=== PATIENT | male | born 1995 | race Hispanic/Latino ===

== ENCOUNTER 2023-03-17 13:13 | Emergency (ER) | payer OTHER ==
[~2023-03-17] VITALS: Ht 177.8 cm; Wt 104.3 kg
[2023-03-17 13:27] VITALS: BP 121/89; PULSE 74; RESP 16
[2023-03-17] MEDS ORDERED: KETOROLAC 60 MG VIAL (30MG/ML) IM ONE (14:00)
[2023-03-17] MEDS ORDERED: IBUP-2077 PO (14:43)
[2023-03-17] MEDS ORDERED: CYCL10TA16 PO (14:43)
[2023-03-17] MEDS ORDERED: METH4TAB3 PO (14:43)
[2023-03-17] MEDS ORDERED: OMEP40CA21 PO (14:43)
== END 2023-03-17 15:55 | disposition home or self-care (01) ==
LOC: EDH 13:13
DX: G89.29 Other chronic pain (principal); M47.816 Spondylosis without myelopathy or radiculopathy, lumbar region; Z79.899 Other long term (current) drug therapy
CPT/HCPCS: 99283; 72100; 96372; J1885

== ENCOUNTER 2025-01-02 02:44 | Emergency (ER) | payer OTHER ==
[~2025-01-02] VITALS: Ht 177.8 cm; Wt 108.9 kg
[~2025-01-02 02:44] MED LIST: CYCL10TA16 PO; IBUP-2077 PO; METH4TAB3 PO; OMEP40CA21 PO
[2025-01-02] MEDS ORDERED: CLIN-141 PO (03:22)
[2025-01-02] MEDS ORDERED: KETO10 PO (03:22)
--- NOTE | 2025-01-02 03:24 | ERN ---
General Chief Complaint: Tooth Ache/Pain Stated Complaint: TOOTHACHE Time Seen by MD: 02:57 Source: patient History of Present Illness Initial Comments 29-year-old male left inferior molar dental decay that has been bothering him for weeks. He has a temporary filling that he got in [place]. He comes in because of continuing dental pain and throbbing. He gives a history of popping what sounded like a fluid collection in his left cheek which helped relieve the pain and swelling for a few days with the pain is coming back. Allergies: Coded Allergies: No Known Drug Allergies (Unverified Allergy, Unknown, 03/17/23) Home Meds Active Scripts Omeprazole (Omeprazole) 40 Mg Capsule.dr, 40 MG PO DAILY, #30 CAP Prov:LISSETH PAZ [employer] 03/17/23 Methylprednisolone (Medrol) 4 Mg Tab.ds.pk, 4 MG PO AD, #1 UNIT Prov:LISSETH PAZ [employer] 03/17/23 Cyclobenzaprine HCl (Flexeril) 10 Mg Tab, 10 MG PO TID, #30 TAB Prov:LISSETH PAZ [employer] 03/17/23 Ibuprofen (Ibuprofen 800 mg Tab) 800 Mg Tab, 800 MG PO Q8H PRN for fever or pain, #30 TAB 0 Refills Prov:LISSETH PAZ [employer] 03/17/23 Past Medical History Past Medical History: No Pertinent History Past Surgical History: None ROS Dictation Review of systems is negative no fevers no chills no shortness of breath. Physical Exam Ear, Nose, Throat Comment Patient's left lower gumline both the cheek side in the tongue side show no signs of bleeding no signs of swelling no signs of erythema or infection. There is a what looks like a temporary paste covering the tooth. The size of the tooth defect is quite large. There is no swelling or warmth or tenderness in the inferior mandibular area of the patient's face. There was no swelling in the patient's cheek or gum lines. MDM Patient most likely needs a root canal. All we can offer here is pain control and antibiotics. I explained this to the patient and he understood. I also explained to him the data coming out over the last 3-5 years describing increased risks of heart disease and dementia associated with poor dentition and lack of flossing. I strongly recommended he go see a dentist. ED Course Vital Signs Date Time Temp Pulse Resp B/P (MAP) Pulse Ox O2 Delivery O2 Flow Rate FiO2 01/02/25 02:45 97.3 59 16 140/88 98 Room Air DX & DISP Disposition: Discharge Departure Impression: Primary Impression: Need for dental care Condition: Stable Scripts Ketorolac Tromethamine (Toradol) 10 Mg Tab 1 TAB PO Q6HPRN PRN for pain for 5 Days, #20 TAB 0 Refills Prov: SETH ZAMUDIO MD 01/02/25 Clindamycin HCl (Clindamycin HCl) 300 Mg Capsule 1 CAP PO QID for 10 Days, #40 CAP 0 Refills Prov: SETH ZAMUDIO MD 01/02/25 Additional Instructions: You have a dental cavity that looks like it has been partially covered by a dent ist. I would not be surprised that you need a full root canal on that tooth. I strongly recommend you find a dentist who can performed a service for your. I have given you Toradol for pain control and also clindamycin to decrease infection. If you take these two medicines together at the same time it can lead to significant stomach upset. Take them at different times during the day and take them both with food. Referrals: SELF,REFERRAL (PCP) SETH ZAMUDIO MD Jan 02, 2025 03:24
[2025-01-02 04:12] VITALS: BP 136/72; PULSE 62; RESP 16; TEMP 97.5; O2SAT 99
== END 2025-01-02 04:11 | disposition home or self-care (01) ==
LOC: EDH 02:44
DX: K08.89 Other specified disorders of teeth and supporting structures (principal); Z79.899 Other long term (current) drug therapy
CPT/HCPCS: 99283; 96372; J1885